=== PATIENT | female | born 1955 | race Caucasian/White ===

== ENCOUNTER → 2024-06-16 12:51 | Outpatient (REF) | payer MEDICARE, OTHER, SELFPAY | LOC: HWRAD 12:51 | PROVIDERS: ATTENDING PHYSICIAN Hospitalist | DX: Z87.891 Personal history of nicotine dependence (principal) | CPT/HCPCS: 71271 ==

== ENCOUNTER 2024-10-27 10:24 | Emergency (ER) | payer MEDICARE, OTHER, SELFPAY ==
[2024-10-27 10:28] VITALS: BP 133/82
--- NOTE | 2024-10-27 10:58 | ED.GENMED ---
History of Present Illness
General
Chief Complaint: Abnormal Lab Value
Time Seen by Provider: 10/27/24 10:55
History of Present Illness
History of Present Illness:
TIME OF INITIAL ENCOUNTER: 11 AM
HPI: Patient started Wegovy about 2 months ago now with nausea and vomiting and outpatient lab work showed an elevated lipase. She initially started at a dose of 0.25 mg for 4 weeks and then since she has been on the 0.5 mg dosing, she has been
having some nausea and vomiting. More recently the vomiting has worsened. She used to be on PPI but stopped this as she felt like she was getting worse while on it. She did lose some weight while on the Wegovy. She has no significant pain. An
outpatient blood test showed a lipase of 282 (top normal lipase at that lab is 72). She states that she no longer drinks alcohol heavily. She has had a cholecystectomy.
EXAM:
GENERAL: Well appearing in no distress
HEENT: Moist oral mucosa
CARDIOVASCULAR: No murmurs, normal heart rate, regular rhythm, No chest wall tenderness
PULMONARY: No respiratory distress, breath sounds are clear and equal
ABDOMEN: Soft with no peritoneal signs, no tenderness, elevated BMI
NEUROLOGIC: Excellent strength all extremities, no coordination deficits
PSYCHIATRIC: Appropriate mental status, normal insight and judgement
EXTREMITIES: Nontender, no edema, moves all extremities equally
SKIN: No rash, no lesions
NUMBER AND COMPLEXITY OF PROBLEMS ADDRESSED AT THE ENCOUNTER
� Chronic conditions affecting care: GERD, cholecystectomy
� Acute Exacerbation and/or Progression of Chronic Illness: This is an acute problem
� Differential Diagnosis includes: Medication side effect, pancreatitis, GERD
AMOUNT AND/OR COMPLEXITY OF DATA TO BE REVIEWED AND ANALYZED
� I performed an independent evaluation of and my interpretation is:
EKG:
CT:
X-rays:
Laboratory Studies: CMP unremarkable, lipase 470, CBC unremarkable
Other:
� Review of other/old records: I reviewed records, the patient was admitted here with acute CVA as well as alcohol intoxication June 2022
� Clinical information was obtained by an independent historian: I spoke to the sister and the at bedside
� Prescriptions/Medications Considered but not given:
� Further testing considered but not performed: Considered CT imaging however the patient has virtually no pain on reassessment and feels well after fluids were given.
RISK OF COMPLICATIONS AND/OR MORBIDITY OR MORTALITY OF PATIENT MANAGEMENT
� Social determinants of health affecting care:Lives at home
� Discussion with other providers:
� Escalation of care including admission/observation vs risk of discharge considered: Started Wegovy for weight loss 8wks ago doing well until 4wks ago when dose was increased to 0.5mg - developed N/V. Outpt lipase was around 270
(different range top normal being 70). Lipase today is 470. Gave IVF, no significant pain nor tenderness. Had gallstone pancreatitis / cholecystectomy Aug 2019. CBC and LFTs normal here. No longer drinks alcohol (undetected today). I suspect that
her symptoms are related to Wegovy use, not truly pancreatitis and figured she could go home. Next dose of Wegovy Thursday and is to see Marlon on Thursday.
ANY OTHER UPDATES:
1 PM: I reassessed patient. The patient feels improved after IV fluids, Zofran, and Pepcid.
Past History
Past History
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
ED Past Surgical History: Cholecystectomy and Orthopedic (Right knee surgery 2010, right C7-T1 epidural steroid injection x2)
Social History
Tobacco: Former smoker
Alcohol: Occasional
Personal:
Living: with family
Family History
Family History: Other (Reviewed and noncontributory)
Phy Exam
Physical Exam
Physical Exam:
See HPI
Course
Orders/Labs/Results
Orders:
Orders
10/27/24 10:59
0.9% Sodium Chloride 1000 ml [Nss] 1,000 ml IV BOLUS
10/27/24 11:14
Famotidine [Pepcid] 20 mg IV NOW STA
Ondansetron Injectable [Zofran] 4 mg IV NOW STA
10/27/24 12:06
Alcohol Urgent
Complete Blood Count/With Diff Urgent
Comprehensive Metabolic Panel Urgent
Lipase Urgent
Abnormal Lab Results
10/27/24
12:06
MCH 31.4 H pg
(27.0-31.0)
Absolute Lymphs (auto) 0.9 L 10^3/uL
(1.2-3.4)
Lymphocytes % 15.6 L %
(20.5-51.1)
Total Protein 6.1 L g/dl
(6.3-8.2)
Lipase 470 H U/L
(23-300)
10/27/24 12:06
10/27/24 12:06
Vital Signs
Initial and Last Documented VS:
Initial Vital Signs
Temp Pulse Resp BP Pulse Ox
36.9 C 110 18 133/82 96
10/27/24 10:28 10/27/24 10:28 10/27/24 10:28 10/27/24 10:28 10/27/24 10:28
Last Documented Vital Signs
Temp Pulse Resp BP Pulse Ox
36.9 C 110 18 133/82 96
10/27/24 10:28 10/27/24 10:28 10/27/24 10:28 10/27/24 10:28 10/27/24 10:28
*Critical Care Note
Total Time (30-74mins, 75-104mins- exclusive of procedures): Not Applicable
ED Attending Note
-
Portions of this chart may have been created with voice recognition software.� Occasional wrong word or��sound alike� substitutions may have occurred due to the inherent limitations of voice recognition software.
Discharge Plan
Departure
Patient Disposition: Home (Routine Discharge)
Date of Disposition: 10/27/24
Time of Disposition: 14:00
Patient with high blood pressure during this ER visit?: Yes
Discharge Problem:
Adverse effects of medication
Instructions: Acute Nausea and Vomiting
Prescriptions:
No Action
sertraline 100 MG tablet
100 mg PO DAILY
omeprazole 40 MG capsule,delayed release(DR/EC)
40 mg PO DAILY
alprazolam 0.25 mg tablet
0.25 mg PO BID PRN (Reason: anxiety)
vitamin B complex Tablet
2 tab PO DAILY
fluticasone propionate 50 mcg/actuation [place],Suspension
2 spray INTRANASAL DAILY
loratadine [Claritin] 10 mg Tablet
10 mg PO DAILY
zerbcmu-owovnwfmj-xbwp 333-133-5 mg Tablet
2 tab PO DAILY
nmvnmas-pqmopubfy-seon 333-133-5 mg Tablet
1 tab PO HS
clopidogrel 75 mg Tablet
75 mg PO DAILY Qty: 20 0RF
aspirin 81 mg Tablet,Chewable
81 mg PO DAILY Qty: 30 0RF
rosuvastatin 40 mg Tablet
40 mg PO HS Qty: 30 0RF
Referrals:
Giuliana Damon MD [Family Provider] -
Mariama Mason MD [Active] - Follow up in 2-3 days
Activity Restrictions/Additional Instructions:
Blood work is unremarkable however the lipase is just slightly elevated at 470 (top normal here is 300). This would not be consistent with pancreatitis however. This was nowhere near as high as the time you had pancreatitis. I spoke to
Job. He agrees you should hold off on next dose of Wegovy. Follow up with Dr. Mason on Thursday.
Interventions
Interventions:
*Risk Screen - Suicide Last Done: 10/27/24 10:28
*General Assessment Last Done: 10/27/24 10:28
*Neglect/Abuse Screening Last Done: 10/27/24 10:28
*ED- Fall Risk Assessment Last Done: 10/27/24 15:21
*Nursing Disposition Last Done: 10/27/24 15:21
Discharge Date and Time
Discharge Date/Time: 10/27/24 15:22
Print Language: BELARUSIAN
[2024-10-27 11:42] VITALS: BMI 35.8
[2024-10-27] MEDS: NSS 1000 IV (12:04)
[2024-10-27] MEDS: ZOFRAN 4 MG IV (12:04)
[2024-10-27] MEDS: PEPCID 20 MG IV (12:04)
[2024-10-27 12:17] LABS: % Basophils 0.2 % (0-2); % Eosinophils 2.8 % (0-6); % Immature Granulocytes 0.2 % (0-0.5); % Lymphocytes 15.6 % (20.5-51.1); % Neutrophils 73.2 % (42.2-75.2); Absolute Eosinophils 0.2 10^3/uL (0-0.7); Absolute Lymphocytes 0.9 10^3/uL (1.2-3.4); Absolute Monocytes 0.5 10^3/uL (0.1-0.6); Absolute Neutrophils 4.2 10^3/uL (1.4-6.5); Hematocrit 38.9 % (37.0-47.0); Hemoglobin 13.3 g/dL (12.0-16.0); Mean Corp Hgb Conc. 34.2 g/dL (33.0-37.0); Mean Corpuscular Hgb 31.4 pg (27.0-31.0); Mean Corpuscular Volume 91.7 fL (81.0-99.0); Mean Platelet Volume 9.9 fL (7.4-10.4); Nucleated Red Blood Cells % 0 %; Platelet Count 182 10^3/uL (130-400); Red Blood Cell Count 4.24 10^6/uL (4.20-5.40); Red Cell Dist. Width 13.1 % (11.5-14.5); White Blood Cell Count 5.7 10^3/uL (4.8-10.8)
[2024-10-27 12:35] LABS: ALT (SGPT) < 10 U/L (0-35); AST (SGOT) 20 U/L (14-36); Albumin 3.6 g/dl (3.5-5.0); Alkaline Phosphatase 57 U/L (38-126); Blood Urea Nitrogen 9 mg/dl (7-17); Calcium 9.1 mg/dl (8.4-10.2); Carbon Dioxide 29 mmol/L (22-30); Chloride 103 mmol/L (98-107); Estimated Creatinine Clearance 86 ml/min; Glucose 95 mg/dl (70-99); Lipase 470 U/L (23-300); Potassium 4.2 mmol/L (3.5-5.1); Sodium 138 mmol/L (135-145); Total Bilirubin 0.8 mg/dl (0.2-1.3); Total Protein 6.1 g/dl (6.3-8.2); eGFR > 60.00
[2024-10-27 12:42] LABS: Alcohol None Detected
== END 2024-10-27 15:22 | disposition home or self-care (01) ==
LOC: EMR 10:24
PROVIDERS: EMERGENCY PHYSICIAN Emergency Medicine; FAMILY PHYSICIAN Internal Medicine
DX: R11.2 Nausea with vomiting, unspecified (principal); T50.995A Adverse effect of other drugs, medicaments and biological substances, initial encounter; E78.00 Pure hypercholesterolemia, unspecified; G47.33 Obstructive sleep apnea (adult) (pediatric); Z90.49 Acquired absence of other specified parts of digestive tract
CPT/HCPCS: 96374; 96375; 96361; 99284; 80053; 82077; 83690; 85025

== ENCOUNTER 2024-11-17 13:00 | Day surgery (SDC) | payer MEDICARE, OTHER, SELFPAY ==
[2024-11-17 11:57] VITALS: BMI 34.2
[2024-11-17 11:58] VITALS: BMI 34.2
[2024-11-17 12:03] VITALS: BP 130/69
[2024-11-17 14:30] VITALS: BP 102/86
[2024-11-17 14:31] VITALS: BP 102/86
[2024-11-17 14:45] VITALS: BP 113/68
== END 2024-11-17 15:17 | disposition home or self-care (01) ==
LOC: GI 13:00
PROVIDERS: ATTENDING PHYSICIAN Internal Medicine Gastroenterology
DX: Z12.11 Encounter for screening for malignant neoplasm of colon (principal); K64.8 Other hemorrhoids; K63.89 Other specified diseases of intestine; K57.30 Diverticulosis of large intestine without perforation or abscess without bleeding; R11.2 Nausea with vomiting, unspecified; K44.9 Diaphragmatic hernia without obstruction or gangrene; K22.89 Other specified disease of esophagus; K31.89 Other diseases of stomach and duodenum; K21.9 Gastro-esophageal reflux disease without esophagitis; D12.7 Benign neoplasm of rectosigmoid junction; D12.3 Benign neoplasm of transverse colon; K63.5 Polyp of colon; K29.50 Unspecified chronic gastritis without bleeding
CPT/HCPCS: 45385; 45380; 43239; 88305; 88342

== ENCOUNTER → 2024-12-27 12:42 | Outpatient (REF) | payer MEDICARE, OTHER, SELFPAY | LOC: MRI 12:42 | PROVIDERS: ATTENDING PHYSICIAN Internal Medicine Gastroenterology; FAMILY PHYSICIAN Nurse Practitioner | DX: R74.8 Abnormal levels of other serum enzymes (principal) | CPT/HCPCS: 74183; A9575 ==